=== PATIENT | female | born 1980 | race Caucasian/White ===

== ENCOUNTER → 2021-04-06 | Outpatient (CLI) | payer BC ==
[2021-04-07 07:11] LABS: RHEUMATOID ARTHRITIS FACTOR <10.0 IU/mL (0.0-13.9)
[2021-04-07 08:14] LABS: HBSAG SCREEN Negative (Negative); HCV AB <0.1 (0.0-0.9); HEP B CORE AB, TOT Negative (Negative)
[2021-04-07 14:14] LABS: ANGIOTENSIN-CONVERTING ENZYME 31 U/L (14-82)
== END ==
LOC: LAB 09:23
PROVIDERS: Internal Medicine
DX: Z11.59 Encounter for screening for other viral diseases (principal); M25.50 Pain in unspecified joint; M13.80 Other specified arthritis, unspecified site; Z87.898 Personal history of other specified conditions; Z79.899 Other long term (current) drug therapy
CPT/HCPCS: 36415; 82164; 82550; 82728; 83520; 85652; 86140; 86200; 86431; 86704; 86803; 87340

== ENCOUNTER → 2021-06-25 | Outpatient (CLI) | payer BC ==
[2021-06-25 08:39] LABS: HEMOGLOBIN 15.4 gm/dl (12.3-15.3); RED BLOOD COUNT 4.8 M/UL (4.00-5.10); WHITE BLOOD COUNT 9.5 K/UL (4.5-11.0)
[2021-06-25 08:50] LABS: BUN/CREATININE RATIO 13 (0-10)
== END ==
LOC: LAB 08:00
PROVIDERS: Internal Medicine
DX: M06.09 Rheumatoid arthritis without rheumatoid factor, multiple sites (principal); Z79.899 Other long term (current) drug therapy
CPT/HCPCS: 36415; 80053; 85025; 85652; 86140

== ENCOUNTER 2021-11-02 09:23 | Emergency (ER) | payer BC | END 2021-11-02 11:14 | disposition home or self-care (01) | LOC: ER1 09:23 | DX: M25.511 Pain in right shoulder (principal); M25.522 Pain in left elbow; F17.210 Nicotine dependence, cigarettes, uncomplicated; Z88.5 Allergy status to narcotic agent | CPT/HCPCS: 73030; 73080; 99283 ==

== ENCOUNTER 2021-11-26 10:32 | Emergency (ER) | payer BC ==
[2021-11-26] MEDS ORDERED: PREDNISONE 50 M50 MG PO (13:46)
[2021-11-26] MEDS ORDERED: PERCOCET 5/325 T1 EA PO (13:46)
[2021-11-26] MEDS ORDERED: TORADOL 10 MG T10 MG PO (13:47)
== END 2021-11-26 14:55 | disposition home or self-care (01) ==
LOC: ER1 10:32
DX: M06.9 Rheumatoid arthritis, unspecified (principal)
CPT/HCPCS: 96372; 99283; J1885